=== PATIENT | female | born 1985 ===

== ENCOUNTER 2017-08-29 02:07 | Emergency (ER) | payer OTHER ==
[~2017-08-29] VITALS: Ht 165.1 cm; Wt 65.8 kg
[2017-08-29] MEDS ORDERED: ZOFRAN ODT8 MG PO (06:00)
[2017-08-29] MEDS ORDERED: PROBIOTIC & AC1 EACH PO (06:00)
[2017-08-29] MEDS ORDERED: ZANTAC300 MG PO (06:00)
== END 2017-08-29 06:15 | disposition home or self-care (01) ==
LOC: ER 02:07 → EMR PED 02:10 → ER 02:10 → EMR PED 06:15
DX: K52.9 Noninfective gastroenteritis and colitis, unspecified (principal); E86.0 Dehydration